=== PATIENT | male | born 1980 | race Caucasian/White ===

== ENCOUNTER 2024-05-08 08:20 | Day surgery (SDC) | payer BC ==
[~2024-05-08 08:20] MED LIST: Propofol 200 MG/20 ML SDV ONE
[2024-05-08] MEDS: Lactated Ringers 1,000 ML IV SCH (09:00)
[2024-05-08] MEDS ORDERED: Ketamine HCL/NACL, ISO-OSM 50 MG/5 ML Syringe ONE (09:51)
[2024-05-08] MEDS ORDERED: Lidocaine 4% 5 ML Amp ONE (09:54)
== END 2024-05-08 11:32 | disposition home or self-care (01) ==
LOC: MW.SDS 08:20
PROVIDERS: ATTEND Surgery
DX: K21.00 Gastro-esophageal reflux disease with esophagitis, without bleeding (principal); J45.40 Moderate persistent asthma, uncomplicated; I10 Essential (primary) hypertension; F31.9 Bipolar disorder, unspecified; E78.00 Pure hypercholesterolemia, unspecified; G47.33 Obstructive sleep apnea (adult) (pediatric); F17.290 Nicotine dependence, other tobacco product, uncomplicated; Z79.899 Other long term (current) drug therapy
CPT/HCPCS: 43239; J2704; J7120; 00731; J3490